=== PATIENT | male | born 1985 ===

== ENCOUNTER → 2019-01-28 | Outpatient (CLI) | payer BC | END | disposition home or self-care (01) | LOC: PLD 08:10 → LAB SHORT 08:10 | DX: L98.8 Other specified disorders of the skin and subcutaneous tissue (principal) | CPT/HCPCS: 88305; 88312 ==

== ENCOUNTER → 2019-02-04 | Outpatient (CLI) | payer BC | END | disposition home or self-care (01) | LOC: LAB SHORT 13:08 → PLD 13:08 | DX: L98.9 Disorder of the skin and subcutaneous tissue, unspecified (principal) | CPT/HCPCS: 88305; 88313 ==